=== PATIENT | male | born 1960 | race African-American/Black ===

== ENCOUNTER 2017-06-23 08:28 | Day surgery (SDC) | payer OTHER ==
[~2017-06-23 08:28] MED LIST: SOD CHLORIDE 0.9% 1,000 ML IV
[2017-06-23] MEDS: CEFAZOLIN 1 GM/50 ML (PMX) 50 ML IVPB (09:28)
[2017-06-23 09:44] LABS: ADD MAN DIFF? NO
[2017-06-23 10:02] LABS: BASOPHILS % 0.4 % (0.0-2.0); EOSINOPHILS # 0.1 10^3/ul (0.0-0.5); EOSINOPHILS % 1.1 % (0.0-7.0); HEMATOCRIT 41.1 % (42.0-52.0); LYMPHOCYTES # 1.8 10^3/ul (0.8-2.9); LYMPHOCYTES % 37.6 % (15.0-51.0); MEAN CORPUSCULAR HEMOGLOBIN 31.9 pg (29.0-33.0); MEAN CORPUSCULAR HGB CONC 34.1 g/dl (32.0-37.0); MEAN CORPUSCULAR VOLUME 93.6 fl (82.0-101.0); MEAN PLATELET VOLUME 9.9 fl (7.4-10.4); MONOCYTE # 0.5 10^3/ul (0.3-0.9); MONOCYTES % 9.7 % (0.0-11.0); NEUTROPHIL # 2.4 10^3/ul (1.6-7.5); PLATELET COUNT 192 10^3/UL (140-415); RED BLOOD COUNT 4.39 10^6/ul (4.70-6.10); RED CELL DISTRIBUTION WIDTH 13.1 % (11.5-14.5)
[2017-06-23 10:02] LABS: WHITE BLOOD COUNT 4.7 10^3/ul (4.8-10.8)
[2017-06-23] MEDS: VANCOMYCIN 1 GM (PMX) 250 ML IVPB (10:14)
[2017-06-23 10:20] LABS: ALANINE AMINOTRANSFERASE 81 IU/L (13-69); ALBUMIN 4.3 g/dl (3.3-4.9); ALBUMIN/GLOBULIN RATIO 1.38; ALKALINE PHOSPHATASE 102 IU/L (42-121); ANION GAP 13 (8-16); ASPARTATE AMINO TRANSFERASE 64 IU/L (15-46); BILIRUBIN,INDIRECT 0.4 mg/dl (0-1.1); BILIRUBIN,TOTAL 0.4 mg/dl (0.2-1.3); BLOOD UREA NITROGEN 13 mg/dl (7-20); CALCIUM 9.5 mg/dl (8.4-10.2); CARBON DIOXIDE 26 mmol/L (21-31); CHLORIDE 108 mmol/L (97-110); CREATININE 0.92 mg/dl (0.61-1.24); GLUCOSE 97 mg/dl (70-220); POTASSIUM 4.7 mmol/L (3.5-5.1); SODIUM 142 mmol/L (135-144); TOTAL PROTEIN 7.4 g/dl (6.1-8.1)
[2017-06-23 10:21] LABS: INR 0.92; PROTIME 12.4 Sec (11.9-14.9)
[2017-06-23 10:22] LABS: PARTIAL THROMBOPLASTIN TIME 26.2 Sec (25.0-35.0)
[2017-06-23] MEDS ORDERED: LIDOCAINE 2% (SDV) 5 ML INJ (10:27)
[2017-06-23] MEDS ORDERED: GLYCOPYRROLATE 0.4 MG INJ ×2 (10:27→11:47)
[2017-06-23] MEDS ORDERED: NEOSTIGMINE 3 MG/3 ML SYRINGE ×2 (10:27→11:47)
[2017-06-23] MEDS ORDERED: SUCCINYLCHOLINE CHLORIDE 100 MG/5 ML SYG IV (10:27)
[2017-06-23] MEDS ORDERED: PROPOFOL 20 ML (10:27)
[2017-06-23] MEDS ORDERED: ROCURONIUM 50 MG INJ (10:27)
[2017-06-23] MEDS ORDERED: MEPERIDINE 100 MG INJ (10:27)
[2017-06-23] MEDS ORDERED: FENTAnyl 50 MCG/ML VIAL IV (10:30)
[2017-06-23] MEDS ORDERED: LABETALOL HCL 20MG INJ IV (10:30)
[2017-06-23] MEDS ORDERED: METOCLOPRAMIDE 10 MG INJ IV (10:30)
[2017-06-23] MEDS ORDERED: EPHEDrine SULFATE 50 MG/5 ML SYG IV (10:30)
[2017-06-23] MEDS ORDERED: OXYCODONE/ACETAMINOPHEN (5/325) TAB PO ×2 (10:30)
[2017-06-23] MEDS ORDERED: MIDAZOLAM 1 MG/ML 2 ML INJ IV (10:30)
[2017-06-23] MEDS ORDERED: hydrALAzine 20 MG INJ IV (10:30)
[2017-06-23] MEDS ORDERED: HYDROmorphONE (0.2 MG/ML) 10ML SYG IV ×2 (10:30)
[2017-06-23] MEDS ORDERED: MEPERIDINE 25 MG INJ IV (10:30)
[2017-06-23] MEDS ORDERED: DIPHENHYDRAMINE 50 MG INJ IV (10:30)
[2017-06-23] MEDS: SODIUM CHLORIDE 0.9% 1L IRRIG IRR (11:18)
[2017-06-23] MEDS: FENTAnyl 50 MCG/ML VIAL IV ×2 (12:55→13:09)
[2017-06-23] MEDS: ONDANSETRON 4 MG INJ IV (12:55)
[2017-06-23] MEDS: HYDROmorphONE (0.2 MG/ML) 10ML SYG IV ×3 (13:31→14:04)
[2017-06-23] MEDS: HYDROCODONE/APAP (7.5/325) TAB PO (15:38)
== END 2017-06-23 16:10 | disposition home or self-care (01) ==
LOC: SDS 08:28
DX: N62 Hypertrophy of breast (principal)
CPT/HCPCS: 19300; 71045; 80053; 85025; 85610; 85730; 88307; 93005

== ENCOUNTER 2017-06-24 10:30 | Emergency (ER) | payer OTHER | END 2017-06-24 15:13 | disposition home or self-care (01) | LOC: E/R 10:30 | DX: G89.18 Other acute postprocedural pain (principal) | CPT/HCPCS: 99283; Z7502 ==

== ENCOUNTER 2018-01-11 06:50 | Day surgery (SDC) | payer OTHER ==
[2018-01-11] MEDS: LACTATED RINGER'S 1,000 ML IV (08:21)
[2018-01-11] MEDS ORDERED: MIDAZOLAM 1 MG/ML 2 ML INJ ×2 (09:41→10:21)
[2018-01-11] MEDS ORDERED: FENTAnyl 50 MCG/ML VIAL ×2 (09:41→10:10)
[2018-01-11] MEDS ORDERED: ONDANSETRON 4 MG INJ IV (10:00)
[2018-01-11] MEDS ORDERED: DIPHENHYDRAMINE 50 MG INJ IV (10:00)
[2018-01-11] MEDS ORDERED: HYDROmorphONE 1 MG/5 ML IV SYRINGE IV ×2 (10:00)
[2018-01-11] MEDS ORDERED: MEPERIDINE 25 MG INJ IV (10:00)
[2018-01-11] MEDS ORDERED: FENTAnyl 50 MCG/ML VIAL IV (10:00)
[2018-01-11] MEDS ORDERED: hydrALAzine 20 MG INJ (10:02)
[2018-01-11] MEDS ORDERED: NEOSTIGMINE 3 MG/3 ML SYRINGE (10:17)
[2018-01-11] MEDS ORDERED: ONDANSETRON 4 MG INJ (10:17)
[2018-01-11] MEDS ORDERED: GLYCOPYRROLATE 0.4 MG INJ (10:17)
[2018-01-11] MEDS ORDERED: LIDOCAINE 2% (SDV) 5 ML INJ (10:17)
[2018-01-11] MEDS ORDERED: PROPOFOL 20 ML (10:17)
[2018-01-11] MEDS: COCAINE 4% 4 ML TOP (10:35)
[2018-01-11] MEDS ORDERED: HYDROCODONE/APAP (7.5/325) TAB PO (15:00)
== END 2018-01-11 12:15 | disposition home or self-care (01) ==
LOC: SDS 06:50
DX: J38.1 Polyp of vocal cord and larynx (principal); Z88.0 Allergy status to penicillin
CPT/HCPCS: 31540; 88305; 93005